=== PATIENT | male | born 1995 | race African-American/Black ===

== ENCOUNTER 2019-01-28 16:52 | Emergency (ER) | payer SELFPAY ==
[~2019-01-28] VITALS: Ht 177.8 cm; Wt 2.6 kg
[2019-01-28 17:05] VITALS: BP 130/62
[2019-01-28] MEDS ORDERED: ORPHENADRINE CITRATE 60 MG/2 ML VIAL. IM STA (17:19)
[2019-01-28] MEDS ORDERED: KETOROLAC TROMETHAMINE 10 MG TABLET PO STA (17:19)
[2019-01-28] MEDS ORDERED: ORPH100T PO (17:24)
[2019-01-28] MEDS ORDERED: IBUP-1027 PO (17:24)
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
== END 2019-01-28 17:36 | disposition home or self-care (01) ==
LOC: ER 16:52
DX: M54.2 Cervicalgia (principal); V49.9XXA Car occupant (driver) (passenger) injured in unspecified traffic accident, initial encounter; Y93.89 Activity, other specified; Y92.89 Other specified places as the place of occurrence of the external cause; Y99.8 Other external cause status
CPT/HCPCS: 96372; 99283; J2360

== ENCOUNTER 2020-11-26 17:14 | Emergency (ER) | payer SELFPAY ==
[~2020-11-26] VITALS: Ht 177.8 cm; Wt 79.0 kg
[~2020-11-26 17:14] MED LIST: IBUP-1027 PO; ORPH100T PO
[2020-11-26 17:25] VITALS: BP 124/78
--- NOTE | 2020-11-26 17:46 | PHYS DOC ---
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 Patient states on Saturday this week he had food at a restaurant. He states the next morning which was Saturday he started having vomiting and diarrhea. He states symptoms have subsided but he missed work Saturday and and he is required to have a note to return to work. Denies any fever. Denies any abdominal pain. 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 [] Eyes: Denies change in visual acuity. [] HENT: Denies nasal congestion or sore throat. [] Respiratory: Denies cough or shortness of breath. [] Cardiovascular: Denies chest pain or edema. [] GI: Reports nausea and vomiting. Denies abdominal pain, bloody stools or diarrhea. [] : Denies dysuria. [] Musculoskeletal: Denies back pain or joint pain. [] Integument: Denies rash. [] Neurologic: Denies headache, focal weakness or sensory changes. [] Psychiatric: Denies depression or anxiety. 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 [] HENT: Normocephalic, atraumatic, bilateral external ears normal, oropharynx moist, no oral exudates, nose normal. [] Eyes: PERRLA, EOMI, conjunctiva normal, no discharge. [] Neck: Normal range of motion, no tenderness, supple, no stridor. [] Cardiovascular:Heart rate regular rhythm, no murmur [] Lungs & Thorax: Bilateral breath sounds clear to auscultation [] Abdomen: Bowel sounds normal, soft, no tenderness, no masses, no pulsatile masses. [] Skin: Warm, dry, no erythema, no rash. [] Back: No tenderness, no CVA tenderness. [] Extremities: No tenderness, no cyanosis, no clubbing, ROM intact, no edema. [] Neurologic: Alert and oriented X 3, normal motor function, normal sensory function, no focal deficits noted. [] Psychologic: Affect normal, judgement normal, mood normal. [] (NAVARRO HILARIO APRN) Current Patient Data: Vital Signs: Vital Signs Date Time Temp Pulse Resp B/P (MAP) Pulse Ox O2 Delivery O2 Flow Rate FiO2 11/26/20 17:25 97.5 80 14 124/78 (93) 99 Room Air 97.5 (NAVARRO HILARIO APRN) EKG: EKG: [] (NAVARRO HILARIO APRN) Radiology/Procedures: Radiology/Procedures: [] (NAVARRO HILARIO APRN) Course & Med Decision Making: Course & Med Decision Making Pertinent Labs and Imaging studies reviewed. (See chart for details) This is a 25-year-old male patient presenting with diarrhea and vomiting that began on Saturday after eating at a restaurant on Saturday night. Patient states symptoms have subsided but he missed work Saturday through and is not allowed to return without a note. Note was provided to patient. Discharge to home. (NAVARRO HILARIO APRN) Dragon Disclaimer: Dragon Disclaimer: This electronic medical record was generated, in whole or in part, using a voice recognition dictation system. (NAVARRO HILARIO APRN) Departure Departure Impression: Primary Impression: Vomiting and diarrhea Disposition: HOME / SELF CARE / HOMELESS Condition: STABLE Referrals: NO PCP (PCP) MORA VERMA MD Follow-up as needed Patient Instructions: Diarrhea, Nausea and Vomiting, [id number] Additional Instructions: You were evaluated in the emergency room for vomiting and diarrhea. You were ill 11/22/2020, 11/23/2020, 11/24/2020. 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 I was available for consultation as needed during the patient's visit in the emergency department. I agree with the clinical impression, plan, and disposition. (DENEEN TOBIAS DO) NAVARRO HILARIO APRN Nov 26, 2020 17:46 DENEEN TOBIAS DO Nov 27, 2020 07:13
== END 2020-11-26 18:22 | disposition home or self-care (01) ==
LOC: ER 17:14
DX: R11.2 Nausea with vomiting, unspecified (principal); R19.7 Diarrhea, unspecified; F17.200 Nicotine dependence, unspecified, uncomplicated
CPT/HCPCS: 99281

== ENCOUNTER 2020-11-30 15:29 | Emergency (ER) | payer SELFPAY ==
[~2020-11-30] VITALS: Ht 177.8 cm; Wt 68.0 kg
[2020-11-30 18:45] LABS: BASO % 1 % (0-3); EOS # 0.1 x10^3/uL (0.0-0.7); EOS % 1 % (0-3); HEMATOCRIT 47.7 % (39.0-53.0); HEMOGLOBIN 16.3 g/dL (13.0-17.5); LYMPH # 1.8 x10^3/uL (1.0-4.8); LYMPH % 29 % (24-48); MEAN CORPUSCULAR HEMOGLOBIN 31 pg (25-35); MEAN CORPUSCULAR HGB CONC 34 g/dL (31-37); MEAN CORPUSCULAR VOLUME 90 fL (79-100); MONO # 0.7 x10^3/uL (0.0-1.1); MONO % 11 % (0-9); NEUT # 3.6 x10^3/uL (1.8-7.7); NEUT % 58 % (31-73); PLATELET COUNT 141 x10^3/uL (140-400); RED BLOOD COUNT 5.34 x10^6/uL (4.30-5.70); RED CELL DISTRIBUTION WIDTH 14.8 % (11.5-14.5); WHITE BLOOD COUNT 6.2 x10^3/uL (4.0-11.0)
[2020-11-30 18:57] LABS: CALCIUM 8.7 mg/dL (8.5-10.1); GFR 109.3; POTASSIUM 4.3 mmol/L (3.5-5.1)
[2020-11-30 19:32] LABS: INFLUENZA A PATIENT NEGATIVE (NEGATIVE); INFLUENZA B PATIENT NEGATIVE (NEGATIVE)
[2020-11-30 19:46] LABS: PLT ESTIMATE ADEQUATE (ADEQUATE)
--- NOTE | 2020-11-30 20:27 | PHYS DOC ---
Past Medical History Past Medical History: No Pertinent History Past Surgical History: No Surgical History Smoking Status: Never Smoker Alcohol Use: Heavy Drug Use: Cocaine General Adult EDM: Chief Complaint: FLU SYMPTOM HPI: HPI: Patient is a 25-year-old male who presents to the emergency department complaining of loose stools for the past 9 days after eating what he thinks was bad steak at a local steak house. Denies any nausea or abdominal pain, denies constipation. States he had 2 loose stools today, states it brown, and a little watery, denies seeing any blood in his stool. Patient denies having the COVID- 19 virus vaccine series, denies any recent fever or chills, does not take pre scription or [id number] medications at home, does not have a primary care physician, denies allergies to medications. Patient denies other physical complaints or physical concerns. Review of Systems: Review of Systems: 14 body systems of review of systems have been reviewed. See HPI for pertinent positives and negative responses, otherwise all other systems are negative, nonpertinent or noncontributory. Constitutional: Negative except as outlined in HPI above. Skin: Negative except as outlined in HPI above. Eyes: Negative except as outlined in HPI above. HENT: Negative except as outlined in HPI above. Respiratory: Negative except as outlined in HPI above. Cardiovascular: Negative except as outlined in HPI above. GI: Negative except as outlined in HPI above. : Negative except as outlined in HPI above. Musculoskeletal: Negative except as outlined in HPI above. Integument: Negative except as outlined in HPI above. Neurologic: Negative except as outlined in HPI above. Endocrine: Negative except as outlined in HPI above. Lymphatic: Negative except as outlined in HPI above. Psychiatric: Negative except as outlined in HPI above. Heart Score: C/O Chest Pain: No Risk Factors: Risk Factors: DM, Current or recent (<one month) smoker, HTN, HLP, family history of CAD, obesity. Risk Scores: Score 0 - 3: 2.5% MACE over next 6 weeks - Discharge Home Score 4 - 6: 20.3% MACE over next 6 weeks - Admit for Clinical Observation Score 7 - 10: 72.7% MACE over next 6 weeks - Early Invasive Strategies Allergies: Allergies: Allergies Coded Allergies Type Severity Reaction Last Updated Verified No Known Drug Allergies 11/26/20 No Physical Exam: PE: Constitutional: Well developed, well nourished, no acute distress, non-toxic appearance. 25-year-old male in no apparent distress. HENT: Normocephalic, atraumatic. Eyes: Conjunctiva normal, no discharge. Neck: Normal range of motion, no stridor. Cardiovascular: No cyanosis appreciated, distal cap refill less than 2 seconds. Lungs & Thorax: Patient is in no respiratory distress, no audible adventitious lung sounds appreciated. Abdomen: Nontender, no abnormalities noted. Normal bowel sounds all 4 quadrants. Skin: Warm, dry, no erythema, no rash. Back: No tenderness, no deformities. Extremities: No tenderness, no cyanosis, no clubbing, ROM intact, no edema. Neurologic: Alert and oriented X 3, normal motor function, normal sensory function, no focal deficits noted. Psychologic: Affect normal, judgement normal, mood normal. Current Patient Data: Labs: Laboratory Tests Test 11/30/20 18:23 11/30/20 18:30 Influenza Type A Antigen Negative (NEGATIVE) Influenza Type B Antigen Negative (NEGATIVE) SARS-CoV-2 Antigen (Rapid) Negative (NEGATIVE) White Blood Count 6.2 x10^3/uL (4.0-11.0) Red Blood Count 5.34 x10^6/uL (4.30-5.70) Hemoglobin 16.3 g/dL (13.0-17.5) Hematocrit 47.7 % (39.0-53.0) Mean Corpuscular Volume 90 fL (79-100) Mean Corpuscular Hemoglobin 31 pg (25-35) Mean Corpuscular Hemoglobin Concent 34 g/dL (31-37) Red Cell Distribution Width 14.8 % (11.5-14.5) H Platelet Count 141 x10^3/uL (140-400) Neutrophils (%) (Auto) 58 % (31-73) Lymphocytes (%) (Auto) 29 % (24-48) Monocytes (%) (Auto) 11 % (0-9) H Eosinophils (%) (Auto) 1 % (0-3) Basophils (%) (Auto) 1 % (0-3) Neutrophils # (Auto) 3.6 x10^3/uL (1.8-7.7) Lymphocytes # (Auto) 1.8 x10^3/uL (1.0-4.8) Monocytes # (Auto) 0.7 x10^3/uL (0.0-1.1) Eosinophils # (Auto) 0.1 x10^3/uL (0.0-0.7) Basophils # (Auto) 0.0 x10^3/uL (0.0-0.2) Platelet Estimate Adequate (ADEQUATE) Giant Platelets Occ Sodium Level 143 mmol/L (136-145) Potassium Level 4.3 mmol/L (3.5-5.1) Chloride Level 104 mmol/L (98-107) Carbon Dioxide Level 31 mmol/L (21-32) Anion Gap 8 (6-14) Blood Urea Nitrogen 13 mg/dL (8-26) Creatinine 1.0 mg/dL (0.7-1.3) Estimated GFR (Cockcroft-Gault) 109.3 Glucose Level 79 mg/dL (70-99) Calcium Level 8.7 mg/dL (8.5-10.1) Laboratory Tests 11/30/20 18:30 Laboratory Tests 11/30/20 18:30 Vital Signs: Vital Signs Date Time Temp Pulse Resp B/P (MAP) Pulse Ox O2 Delivery O2 Flow Rate FiO2 11/30/20 18:52 98.2 75 16 145/55 (85) 100 Room Air 98.2 EKG: EKG: [] Radiology/Procedures: Radiology/Procedures: [] Course & Med Decision Making: Course & Med Decision Making Pertinent Labs and Imaging studies reviewed. (See chart for details) 25-year-old male, vital signs reviewed, presents emergency department concerning loose stools after eating what he thinks is bad meat 9 days ago. Patient's physical examination is unremarkable, will order rapid flu, Covid testing, CBC, BMP. The patient does not appear dehydrated. Patient's labs are unremarkable, the patient's Covid testing and rapid flu were negative. Discussed with patient his symptoms may be due to gastroenteritis. Patient does report having his loose stools early this morning as is not had any problems since. Discussed with patient using [id number] antidiarrheals for continual loose stools however increasing fluids and increasing fiber in diet is probably a better option. Patient agrees and is amenable to ED discharge planning. Discussed with the patient all findings and diagnostic testing as well as the need to follow-up with their primary care provider for further evaluation and treatment or return to the ED if any new or worsening symptoms. Strict return precautions were also discussed at length, the patient voiced understanding and agreement with the discharge planning. The patient was nontoxic in appearance, in no apparent distress, and hemodynamically stable at the time of disposition. Dragon Disclaimer: Dragon Disclaimer: This electronic medical record was generated, in whole or in part, using a voice recognition dictation system. Departure Departure Impression: Primary Impression: Diarrhea Qualified Codes: R19.7 - Diarrhea, unspecified Disposition: HOME / SELF CARE / HOMELESS Condition: GOOD Referrals: NO PCP (PCP) Patient Instructions: Diarrhea Additional Instructions: You are seen today for diarrhea episodes at home. Lab work was drawn and a rapid flu and rapid Covid testing was drawn as well. You do not have the Covid virus, you do not have the flu virus. Your lab work is within normal limits. I suspect this may have been a gastroenteritis from possibly food poisoning however you seem to be recovering well. Please continue to drink plenty of fluids at home. Return to the emergency department for worsening symptoms or other concerns. Thank you for visiting our Emergency Department. It was a pleasure taking care of you today in the emergency department and we appreciate you trusting us with your care. If any additional problems come up don't hesitate to return to visit us. Please follow up with your primary care provider so they can plan additional care if needed and know about the problem that you had. If symptoms worsen come back to the Emergency Department. Any concerning symptoms that start such as chest pain, shortness of air, weakness or numbness on one side of the body, running high fevers or any other concerning symptoms return to the ER. EMERGENCY DEPARTMENT GENERAL DISCHARGE INSTRUCTIONS Thank you for coming to [facility] Emergency Department (ED) today and trusting us with you care. We trust that you had a positive experience in our Emergency Department. If you wish to speak to the department management, you may call the Director at [phone]. YOUR FOLLOW UP INSTRUCTIONS ARE FOLLOWS: 1. Do you have a private Doctor? If you do not have a private doctor, please ask for a resource list of physicians or clinics that may be able to assist you with follow up care. 2. The Emergency Physicain has interpreted your x-rays. The X-Ray specialist will also review them. If there is a change in the findings, you will be notified in 48 hours when at all possible. 3. A lab test or culture has been done, your results will be reviewed and you will be notified if you need a change in treatment. ADDITIONAL INSTRUCTIONS AND INFORMATION: 1. Your care today has been supervised by a physician who is specially trained in emergency care. Many problems require more than one evaluation for a complete diagnosis and treatment. We recommend that you schedule your follow up appointment as recommended to ensure complete treatment of you illness or injury. If you are unable to obtain follow up care and continue to have a problem, or if your condition worsens, we recommend that you return to the ED. 2. We are not able to safely determine your condition over the phone nor are we able to give sound medical advice over the phone. For these safety reasons, if you call for medical advice we will ask you to come to the ED for further evaluation. 3. If you have any questions regarding these discharge instructions please call the ED at [phone]. SAFETY INFORMATION: In the interest of safety, wellness, and injury prevention; we encourage you to wear your sealbelt, if you smoke; quite smoking, and we encourage family to use a protective helmet for bicycling and other sporting events that present an increased risk for head injury. IF YOUR SYMPTOMS WORSEN OR NEW SYMPTOMS DEVELOP, OR YOU HAVE CONCERNS ABOUT YOUR CONDITION; OR IF YOUR CONDITION WORSENS WHILE YOU ARE WAITING FOR YOUR FOLLOW UP APPOINTMENT; EITHER CONTACT YOUR PRIMARY CARE DOCTOR, THE PHYSICIAN WHOSE NAME AND NUMBER YOU WERE GIVEN, OR RETURN TO THE ED IMMEDIATELY. DENEEN MOSLEY APRN Nov 30, 2020 20:26
[2020-11-30 20:54] VITALS: BP 108/65
--- NOTE | 2020-12-01 16:41 | NUR ---
IP: Attempted to contact pt concerning covid results, No answer, left a voicemail to return the call. Addendum: 12/01/20 at 1811 by VERONICA BYRD RN Pt returned my call. I informed him of the negative covid test. Pt verbalized understanding.
== END 2020-11-30 20:58 | disposition home or self-care (01) ==
LOC: ER 15:29
DX: R19.7 Diarrhea, unspecified (principal); Z20.822 Contact with and (suspected) exposure to COVID-19
CPT/HCPCS: 36415; 80048; 85025; 87426; 87804; 99283; U0003; U0005

== ENCOUNTER 2021-01-29 18:33 | Emergency (ER) | payer OTHER ==
[~2021-01-29] VITALS: Ht 175.3 cm; Wt 63.6 kg
[2021-01-29 19:54] VITALS: BP 115/70
[2021-01-29] MEDS ORDERED: IBUPROFEN 100 MG/5 ML ORAL.SUSP. PO ONE (20:00)
[2021-01-29] MEDS ORDERED: DEXAMETHASONE SOD PHOS 20 MG/5 ML VIAL. IM ONE (20:00)
[2021-01-29] MEDS ORDERED: BENZONATATE 100 MG CAPSULE. PO ONE (20:00)
[2021-01-29] MEDS ORDERED: IBUPROFEN 200 MG TABLET. PO ONE (20:00)
--- NOTE | 2021-01-29 20:04 | PHYS DOC ---
Past Medical History Past Medical History: No Pertinent History Past Surgical History: No Surgical History Smoking Status: Never Smoker Alcohol Use: Heavy Drug Use: Cocaine General Adult EDM: Chief Complaint: SORE THROAT HPI: HPI: Patient is a 25-year-old male who presents emergency department complaint of so re throat with a cough nonproductive for the past 2 days. Patient denies recent fever or chills, denies other people in his home with the same symptoms as he, denies chest pains, shortness of breath, denies nasal congestion, denies nausea, vomiting, diarrhea or stomach pains, denies other physical complaints or physical concerns. Patient states he has not had the COVID-19 virus vaccine series and is not interested in being tested for the COVID-19 virus today Review of Systems: Review of Systems: 14 body systems of review of systems have been reviewed. See HPI for pertinent positives and negative responses, otherwise all other systems are negative, nonpertinent or noncontributory. Constitutional: Negative except as outlined in HPI above. Skin: Negative except as outlined in HPI above. Eyes: Negative except as outlined in HPI above. HENT: Negative except as outlined in HPI above. Respiratory: Negative except as outlined in HPI above. Cardiovascular: Negative except as outlined in HPI above. GI: Negative except as outlined in HPI above. : Negative except as outlined in HPI above. Musculoskeletal: Negative except as outlined in HPI above. Integument: Negative except as outlined in HPI above. Neurologic: Negative except as outlined in HPI above. Endocrine: Negative except as outlined in HPI above. Lymphatic: Negative except as outlined in HPI above. Psychiatric: Negative except as outlined in HPI above. Heart Score: C/O Chest Pain: No Risk Factors: Risk Factors: DM, Current or recent (<one month) smoker, HTN, HLP, family history of CAD, obesity. Risk Scores: Score 0 - 3: 2.5% MACE over next 6 weeks - Discharge Home Score 4 - 6: 20.3% MACE over next 6 weeks - Admit for Clinical Observation Score 7 - 10: 72.7% MACE over next 6 weeks - Early Invasive Strategies Current Medications: Current Medications Medications (Trade) Dose Ordered Sig/Xavier Start Time Stop Time Status Last Admin Dose Admin Benzonatate (Tessalon Perle) 100 mg 1X ONCE 01/29/21 20:00 01/29/21 20:01 Dexamethasone Sodium Phosphate (Decadron) 10 mg 1X ONCE 01/29/21 20:00 01/29/21 20:01 Ibuprofen (Children'S Motrin) 600 mg 1X ONCE 01/29/21 20:00 01/29/21 19:49 DC Ibuprofen (Motrin) 600 mg 1X ONCE 01/29/21 20:00 01/29/21 20:01 Allergies: Allergies: Allergies Coded Allergies Type Severity Reaction Last Updated Verified No Known Drug Allergies 11/26/20 No Physical Exam: PE: Constitutional: Well developed, well nourished, no acute distress, non-toxic appearance. 25-year-old male in no apparent distress. HENT: Normocephalic, atraumatic. Oropharynx erythematous, no uvular edema or deviation, no peritonsillar edema or cobblestoning or swelling, no postnasal drip appreciated, no laryngeal edema appreciated, no lymphadenopathy of the head or neck appreciated. Bilateral TMs within normal limits, intact, no drainage from external auditory canals. No drooling, no trismus. Eyes: Conjunctiva normal, no discharge. Neck: Normal range of motion, no stridor. No nuchal rigidity, no meningismus signs. Cardiovascular: No cyanosis appreciated, distal cap refill less than 2 seconds. RRR Lungs & Thorax: Patient is in no respiratory distress, no audible adventitious lung sounds appreciated. Normal work of breathing, no adventitious lung sounds appreciated per auscultation all lung oliva Abdomen: Nontender, no abnormalities noted. Skin: Warm, dry, no erythema, no rash. Back: No tenderness, no deformities. Extremities: No tenderness, no cyanosis, no clubbing, ROM intact, no edema. Neurologic: Alert and oriented X 3, normal motor function, normal sensory function, no focal deficits noted. Psychologic: Affect normal, judgement normal, mood normal. Current Patient Data: Vital Signs: Vital Signs Date Time Temp Pulse Resp B/P (MAP) Pulse Ox O2 Delivery O2 Flow Rate FiO2 01/29/21 19:15 98.1 83 20 120/68 (85) 100 Room Air 98.1 EKG: EKG: [] Radiology/Procedures: Radiology/Procedures: [] Course & Med Decision Making: Course & Med Decision Making Pertinent Labs and Imaging studies reviewed. (See chart for details) 25-year-old male, vital signs reviewed, presents to the emergency department c oncerning sore throat with nonproductive cough. Physical examination consistent with viral pharyngitis, discussed findings with patient, low probability of strep throat infection per Centor score, will treat mild discomfort with suspension ibuprofen, 10 mg Decadron IM, will treat cough with Tessalon Perle medication, discussed findings with patient, prescriptions for Tessalon Perle and Medrol Dosepak at home, strict follow-up with primary care, return to ER precautions or concerns, patient gave verbal understanding of and is amenable to ED discharge planning Discussed with the patient all findings and diagnostic testing as well as the need to follow-up with their primary care provider for further evaluation and treatment or return to the ED if any new or worsening symptoms. Strict return precautions were also discussed at length, the patient voiced understanding and agreement with the discharge planning. The patient was nontoxic in appearance, in no apparent distress, and hemodynamically stable at the time of disposition. Dragon Disclaimer: Dragon Disclaimer: This electronic medical record was generated, in whole or in part, using a voice recognition dictation system. Departure Departure Impression: Primary Impression: Pharyngitis Qualified Codes: J02.9 - Acute pharyngitis, unspecified Disposition: HOME / SELF CARE / HOMELESS Condition: GOOD Referrals: NO PCP (PCP) Patient Instructions: Viral and Bacterial Pharyngitis Additional Instructions: You were seen today in the emergency department for a nonproductive cough and a sore throat. Your physical examination is concerning for a viral throat infection, as we discussed this is treated with pain medications such as ibuprofen and steroids, you are given an intramuscular injection of Decadron steroid medication in the emergency department along with a cough medicine called Tessalon Perle, you are also given children's suspension ibuprofen to assist with throat pain. As we discussed I am prescribing you a oral steroid medication regimen and Tessalon Perle for cough at home, please consider obtaining children's ibuprofen at the pharmacy as well as a throat anesthetic spray such as Chloraseptic to use for throat discomfort. If you do consider obtaining a medication such as Chloraseptic, the red-colored medication seems to work the best for most people, keep this in the refrigerator as the coolness assist and throat discomfort. Please follow-up with your primary care physician soon for ongoing management of your throat discomfort. Return to the emergency department for worsening symptoms or other concerns. Thank you for visiting our Emergency Department. It was a pleasure taking care of you today in the em ergency department and we appreciate you trusting us with your care. If any additional problems come up don't hesitate to return to visit us. Please follow up with your primary care provider so they can plan additional care if needed and know about the problem that you had. If symptoms worsen come back to the Emergency Department. Any concerning symptoms that start such as chest pain, shortness of air, weakness or numbness on one side of the body, running high fevers or any other concerning symptoms return to the ER. Scripts Benzonatate (BENZONATATE) 100 Mg Capsule 100 MG PO TID PRN for COUGH, #15 CAP 0 Refills Prov: DENEEN MOSLEY APRN 01/29/21 Prednisone (PREDNISONE) 50 Mg Tablet 1 TAB PO DAILY for throat infection, #5 TAB 0 Refills Prov: DENEEN MOSLEY APRN 01/29/21 DENEEN MOSLEY APRN Jan 29, 2021 20:04
[2021-01-29] MEDS ORDERED: PRED50TA PO (20:08)
[2021-01-29] MEDS ORDERED: BENZ-8 PO (20:08)
== END 2021-01-29 20:20 | disposition home or self-care (01) ==
LOC: ER 18:33
DX: J02.9 Acute pharyngitis, unspecified (principal); R05.9 Cough, unspecified; F10.20 Alcohol dependence, uncomplicated; Y90.9 Presence of alcohol in blood, level not specified
CPT/HCPCS: 96372; 99283; J1100

== ENCOUNTER 2021-04-26 14:32 | Emergency (ER) | payer SELFPAY ==
[~2021-04-26] VITALS: Ht 177.8 cm; Wt 71.8 kg
[~2021-04-26 14:32] MED LIST changes: +BENZ-8 PO; +PRED50TA PO
[2021-04-26 15:01] VITALS: BP 107/63
--- NOTE | 2021-04-26 15:44 | PHYS DOC ---
Past Medical History Past Medical History: No Pertinent History Past Surgical History: No Surgical History Additional Past Surgical Histo: left ring finger partial amputation Smoking Status: Never Smoker Alcohol Use: Heavy Drug Use: Cocaine General Adult EDM: Chief Complaint: ABDOMINAL PAIN HPI: HPI: Patient is a 26 year old male who presents to the ED today requesting a COVID test. Patient states he had some food from a restaurant on Saturday night. On Saturday he woke up with diarrhea, vomiting, fatigue, chills. He states symptoms have improved. He states today his job requested him to come to the ED and get a Covid test. Review of Systems: Review of Systems: Constitutional: Denies fever or chills. [] Eyes: Denies change in visual acuity. [] HENT: Denies nasal congestion or sore throat. [] Respiratory: Denies cough or shortness of breath. [] Cardiovascular: Denies chest pain or edema. [] GI: Reports diarrhea, vomiting. Denies abdominal pain,bloody stools : Denies dysuria. [] Musculoskeletal: Denies back pain or joint pain. [] Integument: Denies rash. [] Neurologic: Denies headache, focal weakness or sensory changes. [] Psychiatric: Denies depression or anxiety. [] Heart Score: C/O Chest Pain: N/A Risk Factors: Risk Factors: DM, Current or recent (<one month) smoker, HTN, HLP, family history of CAD, obesity. Risk Scores: Score 0 - 3: 2.5% MACE over next 6 weeks - Discharge Home Score 4 - 6: 20.3% MACE over next 6 weeks - Admit for Clinical Observation Score 7 - 10: 72.7% MACE over next 6 weeks - Early Invasive Strategies Allergies: Allergies: Allergies Coded Allergies Type Severity Reaction Last Updated Verified No Known Drug Allergies 11/26/20 No Physical Exam: PE: Constitutional: Well developed, well nourished, no acute distress, non-toxic appearance. [] HENT: Normocephalic, atraumatic, bilateral external ears normal, oropharynx moist, no oral exudates, nose normal. [] Eyes: PERRLA, EOMI, conjunctiva normal, no discharge. [] Neck: Normal range of motion, no tenderness, supple, no stridor. [] Cardiovascular:Heart rate regular rhythm, no murmur [] Lungs & Thorax: Bilateral breath sounds clear to auscultation [] Abdomen: Bowel sounds normal, soft, no tenderness, no masses, no pulsatile masses. [] Skin: Warm, dry, no erythema, no rash. [] Back: No tenderness, no CVA tenderness. [] Extremities: No tenderness, no cyanosis, no clubbing, ROM intact, no edema. [] Neurologic: Alert and oriented X 3, normal motor function, normal sensory function, no focal deficits noted. [] Psychologic: Affect normal, judgement normal, mood normal. [] Current Patient Data: Labs: Laboratory Tests Test 04/26/21 15:01 SARS-CoV-2 Antigen (Rapid) Negative (NEGATIVE) Vital Signs: Vital Signs Date Time Temp Pulse Resp B/P (MAP) Pulse Ox O2 Delivery O2 Flow Rate FiO2 04/26/21 15:01 98.1 80 18 107/63 (78) 98 Room Air 98.1 EKG: EKG: [] Radiology/Procedures: Radiology/Procedures: [] Course & Med Decision Making: Course & Med Decision Making Pertinent Labs and Imaging studies reviewed. (See chart for details) This 36-year-old male patient presenting to the ED today requesting a COVID test. Patient states he had diarrhea, vomiting after eating some food on Saturday. His job would not let him return without a negative Covid test. Patient states symptoms have improved. He states he is tolerating p.o. intake very well and the diarrhea is almost gone Negative rapid Covid test, PCR pending. Discharge to home. Provided return precautions. Greg Disclaimer: Greg Disclaimer: This electronic medical record was generated, in whole or in part, using a voice recognition dictation system. Departure Departure Impression: Primary Impression: Vomiting and diarrhea Disposition: HOME / SELF CARE / HOMELESS Condition: STABLE Referrals: NO PCP (PCP) MORA VERMA MD follow up with your doctor in one week Patient Instructions: Diarrhea, [id number], Nausea and Vomiting, [id number] Additional Instructions: You were evaluated in the emergency room, your rapid Covid test is negative. We encourage you to push fluids, maintain good Adagen, take Tylenol or Motrin for pain or fever or chills. Take Zofran as needed for nausea or vomiting. Follow- up with your doctor in 1 week Scripts Ondansetron (ONDANSETRON ODT) 4 Mg Tab.rapdis 1 TAB PO PRN Q6-8HRS, #16 TAB Prov: NAVARRO HILARIO APRN 04/26/21 NAVARRO HILARIO APRN Apr 26, 2021 15:44
[2021-04-26] MEDS ORDERED: ONDA4TAB12 PO (15:48)
== END 2021-04-26 15:54 | disposition home or self-care (01) ==
LOC: ER 14:32
DX: R11.10 Vomiting, unspecified (principal); R19.7 Diarrhea, unspecified; Z20.822 Contact with and (suspected) exposure to COVID-19
CPT/HCPCS: 87426; 99283; C9803; U0003